=== PATIENT | female | born 1955 | race African-American/Black ===

== ENCOUNTER 2019-10-21 21:04 | Inpatient (IN) | payer BC, OTHER ==
[~2019-10-21] VITALS: Ht 149.9 cm; Wt 36.3 kg
[~2019-10-21 21:04] MED LIST: ALBUTEROL2.5 MG/31; ASPIRIN EC325 M1 PO; IBUPROFEN 400400 M2 PO; PROAIR HFA8.5 GM; SINGULAIR 10 MG10 M1 PO
[2019-10-21 21:05] VITALS: BP 149/64
[2019-10-21 23:34] LABS: ABSOLUTE NEUTROPHILS 4.1 thou/uL (1.4-8.2); BASOPHILS 0.4 % (0.0-2.0); EOSINOPHILS 3.5 % (0.0-3.0); HEMATOCRIT 36.1 % (37.0-47.0); HEMOGLOBIN 11.7 gm/dL (12.0-15.0); LYMPHOCYTES 20.8 % (24.0-44.0); MCHC 32.3 g/dL (28.0-37.0); MCV 92.8 fL (80.0-100.0); MONOCYTES 9.8 % (1.0-8.0); PLATELET COUNT 184 thou/uL (150-400); POLYS 65.5 % (36.0-66.0); RBC 3.89 mil/uL (4.20-5.00); RDW 13.6 % (10.5-14.5); WBC 6.3 thou/uL (4.0-11.0)
[2019-10-21 23:42] LABS: ANION GAP 4 mmol/L (7-16); BUN 12 mg/dL (7-18); CALCIUM 8.9 mg/dL (8.5-10.1); CHLORIDE 107 mmol/L (98-107); CO2 32 mmol/L (21-32); CREATININE 0.6 mg/dL (0.6-1.0); GLUCOSE 88 mg/dL (74-106); SODIUM 143 mmol/L (136-145)
[2019-10-21 23:51] LABS: TROPONIN-I <0.06 ng/mL (<0.06)
[2019-10-22 02:29] VITALS: BP 98/50
[2019-10-22 02:51] VITALS: BP 104/53
[2019-10-22] MEDS ORDERED: SERTRALINE HCL100 MG PO (03:36)
[2019-10-22] MEDS ORDERED: LORAZEPAM 0.50.5 MG PO (03:37)
[2019-10-22] MEDS ORDERED: LIPITOR 20 MG T20 M1 PO (03:38)
[2019-10-22] MEDS ORDERED: D3-5050000 UNIT PO (03:40)
--- NOTE | 2019-10-22 06:24 | NUR ---
ASSUMED CARE OF PATIENT FROM ER. ADMISSION COMPLETE. RESTING WITH TRACH SHIELD, REQUESTED BIPAP BUT THEN REFUSED. Belkis HERNANDEZ CALLED TO NOTIFY THIS RN THAT CXR SHOWED POSSIBLE TB. DRILLER BRAKE LINING NOTIFIED. PLANS TO PUT IN ISOLATION ROOM IN PLACE.
[2019-10-22 08:30] VITALS: BP 96/51
[2019-10-22 11:15] VITALS: BP 121/90
--- NOTE | 2019-10-22 19:26 | NUR ---
ASSUMED CARE AT 0700, SHIFT ASSESSMENT DONE, MEDS GIVEN, VSS. NPO SINCE THIS AM FOR A CT SCAN OF THE CHEST. HAD THE CT SCAN DONE LATE IN THE DAY, AWAITING RESULT. UP AD RAE IN THE ROOM, ON 35% FIO2, DENIES PAIN, NAUSEA, VOMITING. WILL CONTINUE TO ASSESS AND ASSIST WITH ADLs NEEDED.
[2019-10-22 20:45] VITALS: BP 104/66
[2019-10-23 05:17] VITALS: BP 106/58
--- NOTE | 2019-10-23 05:18 | NUR ---
ASSUMED PT CARE AT 1900. PT IS ALERT AND ORIENTED. NO FAMILY AT BEDSIDE. PT IS ON AIRBONE PRECUATION. PT IS STABLE. TRACH PRESENT. NO SIGN OF DISTRESS NOTED. ASSESSMENT COMPLETED AND DOCUMENTED. VITAL SIGNS STABLE. DENIES ANY PAIN. SCHEDULED MEDS ADMINISTERED TO PT. TOLERATED PO INTAKE. PT REFUSES TO WEAR CPAP AT NIGHTTIME. CONTINUE TO MONITOR PATIENT. DENIES ANY FURTHER NEEDS AT THIS TIME.
[2019-10-23 07:20] VITALS: BP 112/68
--- NOTE | 2019-10-23 09:33 | EKG ---
[address] [place] [address] ELECTROCARDIOGRAM REPORT Name: SLICK TIAN Room #: 200-I ADM IN M.R.#: [id number] Admission: 10/22/19 Attend Phys: Terra Long Discharge: Date of : 59 Report #: [id number] THIS REPORT FOR: //name// [facility] ED Test Date: 2019-10-21 Test Time: 23:13:44 Pat Name: SLICK TIAN Department: Room: 200 Gender: F Global Account Manager: ELIESER : 1955 Requested By: Mayuri Latham Order Number: [id number] MD: Tee Esteves Measurements Intervals Esko Rate: 88 P: 76 MN: 160 QRS: 100 QRSD: 108 T: 66 QT: 403 QTc: 488 Interpretive Statements Sinus rhythm Right atrial enlargement Possible right ventricular hypertrophy Borderline prolonged QT interval Compared to ECG 08/15/2012 22:04:51 Early R-wave progression is now present Sinus tachycardia no longer present Electronically Signed On 10-23-2019 9:33:24 [employer] [place] [employer] by Tee Esteves [email or web address] <ELECTRONICALLY SIGNED> By: Tee Esteves MD, [facility] 10/23/19 0933 [id number] Tee Esteves MD, [facility] /EPI
[2019-10-23 11:05] VITALS: BP 132/61
--- NOTE | 2019-10-23 15:09 | NUR ---
Chart reviewed and case discussed with the care team. No weekend dc anticipated. Pt is currently in ISO for r/o TB and or lung mass. Hx of copd with a trach since 2017. The pt lives with family and is indep with gait and adl's. She manages her own trach care and has home o2 at 3liters. She has a valve to help with communication. Dc needs are uncertain at this time. Will continue to follow along for any dc planning needs. Pt has health ins in place and a compression molding machine operator for f/u care.
[2019-10-23 16:00] VITALS: BP 125/55
--- NOTE | 2019-10-23 17:15 | NUR ---
PT CARE ASSUMED APPROX 0700. ASSESSMENT CHARTED. PT DENIES PAIN AND SOA. VSS. TRACH MASK SECURE. UP WITH SBA. STEADY. PT GIVEN CLINICAL UPDATES THIS SHIFT. DENIES QUESTIONS AND CONCERNS REGARDING POC. TOLERATING POC. MEDICAL RECORDS REQUESTED FROM [facility] CORRIGAN ORDER. NOTHING RETURNED THIS TIME. NO DISTRESS NOTED.
[2019-10-23 20:30] VITALS: BP 114/52
--- NOTE | 2019-10-24 02:24 | NUR ---
ALERT AND ORIENTED.PATIENT HAS A TRACH.GETS RT TREATMENT.UP ADLIB TO THE BEDSIDE COMMODE.VOIDED AND HAD 2 BM THIS SHIFT.MONITOR SHOWS SINUS TACHY.POC CONTINUED.
[2019-10-24 03:48] VITALS: BP 115/64
[2019-10-24 07:15] VITALS: BP 98/46
--- NOTE | 2019-10-24 08:58 | NUR ---
ASSUMED CARE OF PT FOR ANOTHER DAY NURSE AROUND 0715, SHE'S A&0X4, VERY LETHARGIC, HAD BG TESTED - WNL, STAFF WHO HAVE HAD HER BEFORE SAID THIS HAS BEEN HER NORM. SLEEPY, YET ANSWERS QUESTIONS. DENIES ANY CURRENT PAIN AT THIS TIME. UP W/SBA TO BSC, JUST WANTED TO REST A LITTLE WHILE LONGER BEFORE SHE ATE BREAKFAST. WILL CONTINUE TO MONITOR
[2019-10-24 11:10] VITALS: BP 113/54
--- NOTE | 2019-10-24 13:32 | NUR ---
GAVE REPORT TO ONCOMING NURSE AND INTRO'D TO PT
[2019-10-24 15:10] VITALS: BP 125/60
--- NOTE | 2019-10-24 15:54 | NUR ---
ASSUMED CARE AT 1300, SHIFT ASSESSMENT DONE, VSS. REMAINS ON 15L FiO2, HAD TO SUCTION PATIENT ONCE, BLOODY CONTENT, SCANTY AMOUNT CAME OUT. REMAINS ON AIRBORNE PRECAUTIONS. WILL CONTINUE TO ASSESS AND ASSIST WITH ADLs NEEDED.
[2019-10-24 20:30] VITALS: BP 112/73
--- NOTE | 2019-10-24 23:52 | NUR ---
ASSUMED CARE OF PT AT APPROX 1900. PT IS ALERT AND ORIENTED X4, MONITORED ON TELE AND ABLE TO MAINTAIN 02 SAT >90 ON TRACH SHIELD 02 SETTINGS. DENIES PAIN AND SOA. EVEN NON LABORED BREATHING. ASSESSMENT CHARTED. PT UNSURE OF WHY HEPARIN IS BEING ADMINISTERED SO FREQUENTLY. SAYS SHE WILL TAKE BUT WANTS TO ASK THE DR ABOUT IT TOO. UPDATED ON POC. DENIES ANY FURTHER QUESTIONS OR CONCERNS. WILL CONT. TO MONITOR.
[2019-10-25 05:35] VITALS: BP 114/66
[2019-10-25 07:10] VITALS: BP 99/44
--- NOTE | 2019-10-25 08:18 | NUR ---
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 A&0X4, MOVES FROM BED TO BSC ON HER OWN YET BED ALARM ENGAGED D/T SLIGHT UNSTEADY GAIT D/T WEAKNESS.ENCOURAGED HER TO USE CALL LIGHT FOR ANY NEEDS. SEE SEPARATE INTERVENTIONS FOR ASSESSMENTS
--- NOTE | 2019-10-25 12:58 | NUR ---
PHYSICIANS:PLEASE ENTER ROOM IF YOU ARRIVE EARLY. 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 ALTHOUGH OBLIGES W/MEDS AND CARES
--- NOTE | 2019-10-25 12:59 | NUR ---
GIVING REPORT TO ONCOMING NURSE AND INTRO'ING TO PATIENTS
[2019-10-25 14:59] LABS: INR 1.1
[2019-10-25 15:02] LABS: APTT 95.9 Seconds (24.5-32.8)
[2019-10-25 15:25] VITALS: BP 134/72
--- NOTE | 2019-10-25 15:42 | NUR ---
ASSUMED CARE AT 1300, SHIFT ASSESSMENT DONE, LAB CALLED ABOUT A CRITICAL aPTT 95.9, DR CORRIGAN WAS INFORMED, ORDER RECEIVED TO HOLD HEPARIN FOR NOW, PUT AN aPTT FOR TOMORROW MORNING AND INFORM THE HOSPITALSIT, ALL WAS CARRIED OUT. PT NEEDED TO SUCTIONED ONCE, REMAINS ON 35%FiO2. WILL CONTINUE TO ASSESS AND ASSIST WITH ADLs NEEDED.
[2019-10-25 19:33] VITALS: BP 118/63
[2019-10-26 04:21] VITALS: BP 109/72
--- NOTE | 2019-10-26 04:24 | NUR ---
ASSUMED PT CARE AT 1900. PT VSS WITH NO C/O PAIN,N/V/D. PT UP AD RAE AND STEADY. PT MAINTAINED ON 15L 35%FiO2. WILL CONTINUE TO MONITOR PT PER POC.
[2019-10-26 05:21] LABS: HEMATOCRIT 35.3 % (37.0-47.0); HEMOGLOBIN 11.4 gm/dL (12.0-15.0); MCH 29.9 pg (26.0-34.0); MCHC 32.4 g/dL (28.0-37.0); MCV 92.3 fL (80.0-100.0); RBC 3.82 mil/uL (4.20-5.00); RDW 13.6 % (10.5-14.5); WBC 9.7 thou/uL (4.0-11.0)
[2019-10-26 05:33] LABS: CALCIUM 8.8 mg/dL (8.5-10.1); CREATININE 0.7 mg/dL (0.6-1.0); POTASSIUM 3.4 mmol/L (3.5-5.1)
[2019-10-26 07:15] VITALS: BP 100/53
[2019-10-26 07:35] VITALS: BP 115/60
--- NOTE | 2019-10-26 10:17 | NUR ---
patient to tenatively dc home in am. She reports she had a PCP at [facility] but they left. She reports she needs new PCP. Tenative plan for dc home with HH care. no preference for HH agency. She reports Dr Ward is her pulmonary phys out of research. he may follow for HH care.
--- NOTE | 2019-10-26 10:26 | NUR ---
ASSUMED CARE AT 0700, SHIFT ASSESSMENT DONE, MEDS GIVEN, VSS. DENIES PAIN, NAUSEA, VOMITING. UP AD RAE IN THE ROOM, ON 35% FiO2, 15L O2. WORKED WITH OCCUPATIONAL THERAPHY. PER THE PULMONARY DR, PT CAN COME OFF TELE, CROP OR GRAIN FARMER NOTIFIED, TRANFER ORDER RECEIVED TO MOVE PT TO ROOM 449 PT IN ON ISOLATION FOR SUSPECTED TB. WILL CONTINUE TO ASSESS AND ASSIST WITH ADLs NEEDED.
--- NOTE | 2019-10-26 12:43 | NUR ---
ORDERS RECEIVED. CHART REVIEWED. Pt IS UP AD RAE IN HER ROOM. Pt STATES THAT SHE IS GETTING AROUND JUST FINE ON HER OWN AND FEELS SAFE WITH HER MOBILITY. Pt REFUSING ANY P.T. AT THIS TIME/ADMISSION.
--- NOTE | 2019-10-26 16:23 | NUR ---
FAXED REFERRAL TO [facility] SPOKE WITH HADLEY THEY WILL NEED PCP FOR PT TO ACCEPT. DP SPOKE WITH PT'S PULM. PHYSICIAN OFFICE AND THEY WILL NOT FOLLOW PT FOR HH. DP TO FOLLOW.
--- NOTE | 2019-10-26 19:42 | NUR ---
Received pt from , with a trach and speaking valve, pt is up at dillon and able to amblate within her room. No signs or verbalizations of distress have been noted. 15 L O2 35% FIO2. Has her own cpap machine at the bedside. POC followed, endorsed to the night nurse.
[2019-10-26 21:15] VITALS: BP 116/57
--- NOTE | 2019-10-27 03:41 | NUR ---
ASSUMED CARE OF PT AT 1900HRS. PT IS AOX4 AND LETS NEEDS BE KNOWN. PT IS UP AD RAE. PT HAS A TRACH AND IS ON 15L O2 @ 35% FiO2. PLEASE WHEAN OFF O2 IF TOLERATED. PT HAS A VOICE PIECE. PT USED CPAP WHILE SLEEPNG. PT DENIED NAUSEA OR PAIN. VSS AND NO S/S OF ACUTE DISTRESS. WILL CONTINUE TO MONITOR.
[2019-10-27 08:00] VITALS: BP 115/67
[2019-10-27 15:00] VITALS: BP 118/72
--- NOTE | 2019-10-27 16:21 | NUR ---
CARE TEAM INDICATED THAT PT WILL LIKLEY BE MEDICALLY STABLE TO DC HOME TOMORROW. CM TRYING TO REACH OUT TO PCP OFFICES TO SEE IF THEY CAN ACCEPT PT UPON DC. [facility] CAN TAKE PT BUT NEEDS PCP IN PLACE. CM TO FOLLOW INDICATED WITH DC PLANNING.
[2019-10-27 18:56] VITALS: BP 117/70
--- NOTE | 2019-10-27 20:11 | NUR ---
Assumed pt care this am, pt is up at dillon and steady on her gait. Pt has a trach and speaking valve. Uses a a cpap at night, goal is for O2 to be tapered down by RT. POC followed, VS stable, no signs or verbalizations of distress hyave been noted.
--- NOTE | 2019-10-28 03:55 | NUR ---
ASSUMED CARE AROUND 1914. AXOX3. AIRBORNE ISO FOR POSS TB. TRACH INTACT. NO S/S ACUTE DISTRESS NOTED OR REPORTED AT THIS TIME. WILL CONT TO MONITOR FOR ANY CHANGES IN CONDITION.
[2019-10-28 07:52] VITALS: BP 99/54
[2019-10-28 09:36] LABS: T-SPOT.TB Negative
[2019-10-28] MEDS ORDERED: PROTONIX40 M1 PO (10:41)
[2019-10-28] MEDS ORDERED: PREDNISONE 20 M20 MG PO (10:41)
[2019-10-28] MEDS ORDERED: VITAMIN D21250 MC1 PO (10:41)
[2019-10-28] MEDS ORDERED: IPRAT-ALBUT 0.5-3 ML INH (10:41)
[2019-10-28] MEDS ORDERED: MUCINEX600 MG PO (10:41)
[2019-10-28] MEDS ORDERED: LEVAQUIN 750 M750 MG PO (10:41)
[2019-10-28 11:32] VITALS: BP 99/54
[2019-10-28 12:01] VITALS: BP 99/54
[2019-10-28 12:40] VITALS: BP 99/54
--- NOTE | 2019-10-28 14:27 | NUR ---
DISCHARGE ORDERS COMPLETED. PATIENT DISCHARGING TO HOME WITH [facility]. DISCHARGE/HOME HEALTH ORDERS FAXED TO [facility]. DR TOREY SOLOMON MD TO FOLLOW PATIENT FOR HH. CALL PLACED TO [facility]. SPOKE WITH PATRICIA SIMPSON, NOTIFIED OF DR SOLOMON FOLLOWING.
[2019-10-28 15:03] VITALS: BP 99/54
--- NOTE | 2019-10-28 15:05 | NUR ---
PT IS TO DISCHARGE HOME THIS DAY WITH [facility]. DR. SOLOMON IS TO FOLLOW FOR HOME HEALTH SERVICES INITIALLY PT HAS AN APPOINTMENT WITH DR. BURT FOLEY Saturday11/02/19 AT 11:00. NO OTHER CM INTERVENTION INDICATED. CASE CLOSED.
--- NOTE | 2019-10-28 15:52 | NUR ---
Assumed pt care at 0700.Pt in isolation for tb.Assessment completed.vss. Am meds given and well tolerated.Dr Barahona and Pulmonary care advocate here,dc order noted.Pt wanted to leave after lunch.Dc summary compiled and reviewed with pt rx and dc summary copy given. Saline lock dc'd. At 1545,pt dc home per wc with family.
== END 2019-10-28 15:58 | disposition home health service (06) | DRG 189 ==
LOC: ER 21:04 → 2N 10-22 01:05 → EROBS 10-22 01:05 → 2N 10-22 03:03 → 4W 10-26 12:43 → ENTRNSPT 10-28 15:31 → EDTRNSPTSTS 10-28 15:34 → 4W 10-28 15:58
PROVIDERS: Emergency Medicine; Internal Medicine Pulmonary Disease; Nurse Practitioner Family; ADMIT Hospitalist
PROC: 5A09357 Assistance with Respiratory Ventilation, Less than 24 Consecutive Hours, Continuous Positive Airway Pressure (ICD-10-PCS; principal; 2019-10-24)
PROC: 5A09357 Assistance with Respiratory Ventilation, Less than 24 Consecutive Hours, Continuous Positive Airway Pressure (ICD-10-PCS; 2019-10-26)
PROC: 5A09357 Assistance with Respiratory Ventilation, Less than 24 Consecutive Hours, Continuous Positive Airway Pressure (ICD-10-PCS; 2019-10-28)
DX: J96.21 Acute and chronic respiratory failure with hypoxia (principal); J44.1 Chronic obstructive pulmonary disease with (acute) exacerbation; Z68.1 Body mass index [BMI] 19.9 or less, adult; R04.2 Hemoptysis; E46 Unspecified protein-calorie malnutrition; E78.5 Hyperlipidemia, unspecified; E87.6 Hypokalemia; F41.9 Anxiety disorder, unspecified; F32.9 Major depressive disorder, single episode, unspecified; K21.9 Gastro-esophageal reflux disease without esophagitis; Z79.899 Other long term (current) drug therapy; Z88.1 Allergy status to other antibiotic agents; Z99.81 Dependence on supplemental oxygen; Z79.01 Long term (current) use of anticoagulants; Z79.2 Long term (current) use of antibiotics; Z79.82 Long term (current) use of aspirin; Z93.0 Tracheostomy status; Z87.891 Personal history of nicotine dependence
CPT/HCPCS: 10040; 10045; 10081